=== PATIENT | female | born 1960 | race Two or more races ===

== ENCOUNTER 2020-11-10 05:50 | Day surgery (SDC) | payer OTHER ==
[~2020-11-10 05:50] MED LIST: COZAAR100 MG PO; LEVOTHYROXINE25 MCG PO; SINGULAIR10 MG PO
== END 2020-11-10 15:55 | disposition home or self-care (01) ==
LOC: CIR.AMB 05:50
PROVIDERS: ATTEND Orthopaedic Surgery Hand Surgery
DX: G56.02 Carpal tunnel syndrome, left upper limb (principal); Z20.822 Contact with and (suspected) exposure to COVID-19